=== PATIENT | male | born 1955 | race Caucasian/White ===

== ENCOUNTER 2020-03-13 11:09 | Emergency (ER) | payer OTHER ==
[~2020-03-13] VITALS: Ht 180.3 cm; Wt 70.3 kg
[2020-03-13 11:10] VITALS: BP_SYST 135
--- NOTE | 2020-03-13 11:10 | NUR ---
BROUGHT BACK TO BED #5 AND TRIAGED.REPORT GIVEN TO GABRIEL
--- NOTE | 2020-03-13 11:13 | NUR ---
Patient presented to ER C/O right clavicle pain. Patient BIB BLS, A&Ox4, afebrile, skin pink & warm, deformity to right anterior shoulder, pain 7/10, denies N/V/D.
--- NOTE | 2020-03-13 11:20 | NUR ---
Radiology at bedside for portable x-ray.
--- NOTE | 2020-03-13 11:34 | NUR ---
ER Dr. Martinez at bedside examining patient.
[2020-03-13] MEDS ORDERED: MORPHINE 4 MG/ML INJ. SYRINGE IM ONE (11:45)
--- NOTE | 2020-03-13 12:05 | NUR ---
Patient given written and verbal discharge instructions and verbalizes understanding. ER MD discussed with patient the results and treatment provided. Patient in stable condition. ID arm band removed. Rx of norco & motrin given. Patient educated on pain management and to follow up with PMD. Pain Scale 6/10 tolerable for patient. Opportunity for questions provided and answered. Medication side effect fact sheet provided.
[2020-03-13 12:18] VITALS: BP_SYST 138
== END 2020-03-13 12:05 | disposition home or self-care (01) ==
LOC: SED 11:09
DX: S42.031A Displaced fracture of lateral end of right clavicle, initial encounter for closed fracture (principal); I10 Essential (primary) hypertension; V19.9XXA Pedal cyclist (driver) (passenger) injured in unspecified traffic accident, initial encounter; Y93.89 Activity, other specified; Y92.89 Other specified places as the place of occurrence of the external cause; Y99.8 Other external cause status
CPT/HCPCS: 73000-TC; 96372; 99283; J2270